=== PATIENT | female | born 1975 | race Caucasian/White ===

== ENCOUNTER 2018-09-04 14:42 | Emergency (ER) | payer OTHER, MEDICAID ==
[~2018-09-04] VITALS: Ht 170.2 cm; Wt 79.4 kg
[2018-09-04 14:53] VITALS: BP 139/93
[2018-09-04] MEDS ORDERED: AUGMENTIN 875-1 EACH PO (15:11)
== END 2018-09-04 15:20 | disposition home or self-care (01) ==
LOC: M.ERS 14:42
DX: J06.9 Acute upper respiratory infection, unspecified (principal); F17.210 Nicotine dependence, cigarettes, uncomplicated; Z88.6 Allergy status to analgesic agent

== ENCOUNTER 2019-02-08 21:09 | Emergency (ER) | payer OTHER ==
[~2019-02-08] VITALS: Ht 170.2 cm; Wt 80.3 kg
[~2019-02-08 21:09] MED LIST: AUGMENTIN 875-1 EACH PO
[2019-02-08] MEDS ORDERED: PROMETHAZI6.25 MG/5 PO (21:59)
[2019-02-08] MEDS ORDERED: MEDROLDOSEPACK PO (21:59)
[2019-02-08] MEDS ORDERED: TESSALON PERLE100 MG PO (21:59)
[2019-02-08] MEDS ORDERED: TYLENOL WITH CO1 TA1 PO (21:59)
[2019-02-08 22:19] VITALS: BP 129/83
== END 2019-02-08 22:03 | disposition home or self-care (01) ==
LOC: M.ERS 21:09
DX: B34.9 Viral infection, unspecified (principal); I10 Essential (primary) hypertension; F17.210 Nicotine dependence, cigarettes, uncomplicated; Z88.6 Allergy status to analgesic agent

== ENCOUNTER 2020-01-03 10:15 | Emergency (ER) | payer OTHER ==
[~2020-01-03] VITALS: Ht 170.2 cm; Wt 80.7 kg
[~2020-01-03 10:15] MED LIST changes: +MEDROLDOSEPACK PO; +PROMETHAZI6.25 MG/5 PO; +TESSALON PERLE100 MG PO; +TYLENOL WITH CO1 TA1 PO
[2020-01-03] MEDS ORDERED: LISINOPRIL2.5 MG PO (10:37)
[2020-01-03] MEDS ORDERED: ALLEGRA ALLERGY60 MG PO (10:37)
[2020-01-03 11:06] LABS: INFLUENZA A ANTIGEN Negative (Negative); INFLUENZA B ANTIGEN Negative (Negative)
[2020-01-03] MEDS ORDERED: TESSALON PERLE100 MG PO (11:29)
[2020-01-03] MEDS ORDERED: PROMETHAZI6.25 MG/5 PO (11:29)
[2020-01-03] MEDS ORDERED: APAP W/CODEINE1 TA2 PO (11:29)
[2020-01-03 11:40] VITALS: BP 144/78
== END 2020-01-03 11:41 | disposition home or self-care (01) ==
LOC: M.ERS 10:15
PROVIDERS: Physician Assistant
DX: J06.9 Acute upper respiratory infection, unspecified (principal); Z20.828 Contact with and (suspected) exposure to other viral communicable diseases; I10 Essential (primary) hypertension; F17.210 Nicotine dependence, cigarettes, uncomplicated; Z91.041 Radiographic dye allergy status

== ENCOUNTER 2020-01-27 16:46 | Emergency (ER) | payer OTHER ==
[~2020-01-27] VITALS: Ht 170.2 cm; Wt 83.9 kg
[~2020-01-27 16:46] MED LIST changes: +ALLEGRA ALLERGY60 MG PO; +APAP W/CODEINE1 TA2 PO; +LISINOPRIL2.5 MG PO
[2020-01-27] MEDS ORDERED: ZYRTEC10 M5 PO (17:05)
[2020-01-27 18:32] LABS: URINE BILIRUBIN NEGATIVE (Negative); URINE BLOOD 2+ (Negative); URINE CLARITY CLEAR; URINE COLOR YELLOW; URINE GLUCOSE-RANDOM NEGATIVE (Negative); URINE KETONES NEGATIVE (Negative); URINE LEUKOCYTES-REFLEX NEGATIVE (Negative); URINE NITRITE-REFLEX NEGATIVE (Negative); URINE PROTEIN NEGATIVE (Negative); URINE SPECIFIC GRAVITY >= 1.030 (1.005-1.030); URINE UROBILINOGEN 0.2 E.U./dl (0.2-1.0)
[2020-01-27 18:41] LABS: ABSOLUTE BASOPHILS 0.1 thou/uL (0.0-0.2); ABSOLUTE EOSINOPHILS 0.3 thou/uL (0.0-0.7); ABSOLUTE LYMPHOCYTES 2.1 thou/uL (0.8-5.3); ABSOLUTE MONOCYTES 0.8 thou/uL (0.0-1.2); ABSOLUTE NEUTROPHILS 5.8 thou/uL (1.6-8.1); BASOPHILS 1.3 %; EOSINOPHILS 3.1 %; HEMATOCRIT 35.4 % (37.0-47.0); HEMOGLOBIN 11.8 gm/dL (12.0-15.0); MCH 31.6 pg (26.0-34.0); MCHC 33.4 g/dL (28.0-37.0); MCV 94.7 fL (80.0-100.0); MONOCYTES 9.2 %; MPV 8.7 fl. (7.2-11.1); NUCLEATED RBCS 0 /100WBC; PLATELET COUNT* 238 thou/uL (150-400); POLYS 63.4 %; RBC 3.74 mil/uL (4.20-5.00); RDW-CV 13.8 % (10.5-14.5); WBC 9.2 thou/uL (4.0-11.0)
[2020-01-27 18:50] LABS: CALCIUM 8.1 mg/dL (8.5-10.1); CREATININE 0.6 mg/dL (0.6-1.3); POTASSIUM 3.8 mmol/L (3.5-5.1)
[2020-01-27 18:52] LABS: URINE WBC-REFLEX 0-5 Rare /HPF (0-5)
[2020-01-27 18:53] LABS: BACTERIA-REFLEX >30 Many /HPF (None Seen); CASTS None Seen /LPF (None Seen); CRYSTALS None Seen /LPF (None Seen); MUCUS >6 Heavy strn/LPF (None Seen)
[2020-01-27 18:54] LABS: SQUAMOUS >10 Many /LPF (0-3)
[2020-01-27 18:54] LABS: ALBUMIN 3.3 g/dL (3.4-5.0); TOTAL BILIRUBIN 0.3 mg/dL (<0.1-1.0); TOTAL PROTEIN 6.4 g/dL (6.4-8.2)
[2020-01-27] MEDS ORDERED: HYDROCODON-ACE1 EAC8 PO (21:13)
[2020-01-27] MEDS ORDERED: FLEXERIL PO (21:13)
[2020-01-27 21:24] VITALS: BP 132/70
== END 2020-01-27 21:25 | disposition still patient (30) ==
LOC: M.ERS 16:46
PROVIDERS: Physician Assistant
DX: R31.9 Hematuria, unspecified (principal); M54.5 Low back pain; R10.9 Unspecified abdominal pain; M62.838 Other muscle spasm; I10 Essential (primary) hypertension; F17.210 Nicotine dependence, cigarettes, uncomplicated; Z79.899 Other long term (current) drug therapy; Z91.041 Radiographic dye allergy status

== ENCOUNTER 2020-06-26 12:13 | Emergency (ER) | payer OTHER ==
[~2020-06-26] VITALS: Ht 170.2 cm; Wt 81.7 kg
[~2020-06-26 12:13] MED LIST changes: +FLEXERIL PO; +HYDROCODON-ACE1 EAC8 PO; +ZYRTEC10 M5 PO
[2020-06-26] MEDS ORDERED: CLONAZEPAM 0.50.5 M1 PO (12:28)
[2020-06-26] MEDS ORDERED: AMOXICILLIN 50500 MG PO (12:42)
[2020-06-26 12:50] VITALS: BP 131/95
== END 2020-06-26 12:52 | disposition home or self-care (01) ==
LOC: M.ERS 12:13
DX: J32.1 Chronic frontal sinusitis (principal); I10 Essential (primary) hypertension; F17.210 Nicotine dependence, cigarettes, uncomplicated; Z91.041 Radiographic dye allergy status